=== PATIENT | female | born 1960 | race Caucasian/White ===

== ENCOUNTER 2019-07-19 15:22 | Inpatient (IN) ==
[2019-07-19] MEDS ORDERED: ONDANSETRON HCL/PF 2 MG/ML VIAL IV ONE (15:49)
[2019-07-19] MEDS ORDERED: NORMAL SALINE 1,000 ML IV ONE ×4 (15:49→17:38)
[2019-07-19] MEDS ORDERED: KETOROLAC TROMETHAMINE 30 MG/ML VIAL IV ONE (15:49)
[2019-07-19 15:51] LABS: Urine Bilirubin 1 mg/dl (NEGATIVE); Urine Blood 25 /ul (NEGATIVE); Urine Ketone Large mg/dL (NEGATIVE); Urine Nitrite Negative (NEGATIVE); Urine Protein 30 mg/dL (NEGATIVE); Urine Specific Gravity >=1.030 SP.GR. (1.005-1.010); Urine Urobilinogen Normal (NORMAL); Urine pH 5.5 pH (5.0-7.0)
[2019-07-19 15:52] LABS: Urine Appearance Clear (CLEAR); Urine Bacteria None Seen; Urine Color Yellow; Urine Hyaline Cast 0-5 /LPF; Urine RBC 0-5 /hpf (0-5); Urine WBC None Seen /hpf (0-5)
[2019-07-19 16:07] LABS: Hematocrit 48.1 % (37.0-47.0); Hemoglobin 15.9 gm/dL (12.5-16.0); Mean Cell Volume 91.1 fl (78-100); Mean Corpuscular Hemoglobin 30.1 pg (27-31); Mean Corpuscular Hgb Conc 33.1 g/dl (32-36); Mean Platelet Volume 10.7 fl (8-12.5); Neutrophil # 8.7 K/mm3 (1.3-6.0); Platelet Count 308 K/mm3 (150-450); Red Blood Count 5.28 M/mm3 (4.2-5.4); Red Cell Distribution Width 13.2 % (11.5-14.0); White Blood Count 11.3 K/mm3 (4.0-10.5)
[2019-07-19 16:17] LABS: Albumin * 4.6 gm/dl (3.4-5.0); Anion Gap 27.5 mmol/L (6.8-13.8); BUN/Creatinine Ratio 13.6 (9.0-21.6); Bilirubin, Total 0.5 mg/dL (0.0-1.1); Ca. Corrected For Albumin 8.7 mg/dL (8.4-10.2); Calcium * 9.5 mg/dL (7.9-10.9); Carbon Dioxide 14.8 mmol/L (24-32.6); Potassium 5.3 mmol/L (3.4-4.6); Total Protein 8.7 gm/dL (6.2-8.2)
[2019-07-19] MEDS ORDERED: INSULIN REGULAR, HUMAN 100 UNITS/ML VIAL IV ONE (16:44)
[2019-07-19] MEDS ORDERED: INSULIN REGULAR, HUMAN 100 UNITS in NORMAL SALINE 100 ML IV PRN ×2 (16:44)
--- NOTE | 2019-07-19 17:10 | ERNOTE ---
Medical Problem HPI - Narrative Date of Service: 07/19/19 - General Chief Complaint: Nausea/Vomiting Time Seen by Provider: 07/19/19 15:34 Source: patient, RN notes reviewed, old records Exam Limitations: no limitations - Immun/Allergies/Home Medications Immunizations: IMMUNIZATION HX Immunizations Up to Date Yes History of Influenza Vaccine No Hx Pneumococcal Vaccination No Allergies/Adverse Reactions: Allergies Penicillins Allergy (Mild, Verified 07/11/19 13:03) RASH shellfish derived Allergy (Mild, Verified 07/11/19 13:03) nausea/vomiting Home Medications: HOME MEDICATIONS NK 05/14/19 [Last Taken Unknown] - History of Present History Narrative: Toshia is a 59 year old female who presents to the ED for vomiting that began the evening of 07/16/19. She also reports severe pain in both of her legs. This started a few days before the vomiting. She denies having any diarrhea or abdominal pain. She also denies having any sick contacts. She recently saw her PCP for concerns for a DVT due to pain in her right ankle. She has not been taking anything for her symptoms. Date (Duration): 07/16/19 Timing: getting worse Review of Systems - Review of Systems Constitutional: Present: fatigue, malaise. Absent: recent illness, fever, chills EYE: Absent: eye pain, eye discharge ENT: Absent: ear pain, nose congestion, sore throat Respiratory: Absent: shortness of breath, cough Cardiology: Absent: chest pain, edema, claudication Gastrointestinal/Abdominal: Present: nausea, vomiting. Absent: diarrhea, abdominal pain Genitourinary: Absent: dysuria, hematuria Musculoskeletal: Present: muscle pain. Absent: back pain, joint pain, joint swelling Skin: Absent: rash, lesions Neurological: Absent: headache, dizziness/light-headedness Endocrine: Present: increased thirst, increased urine Hematologic/Lymphatic: Absent: easy bruising, easy bleeding Psych: Present: no symptoms reported Medical History (Last Reviewed 07/19/19 @ 17:24 by Keara Hicks NP) Hyperlipidemia (Chronic) Onset Date: Unknown Surgical History: Surgical History (Last Reviewed 07/19/19 @ 17:24 by Keara Hicks NP) History of cholecystectomy Onset Date: ~2012 History of tonsillectomy Onset Date: Unknown Family History: Family History (Last Reviewed 07/19/19 @ 17:24 by Keara Hicks NP) Mother Cancer Father Myocardial infarction Social History: (Last Reviewed 07/19/19 @ 17:24 by Keara Hicks NP) Social History: adopted: No foster care: No usp: No Marital status: lives independently: No household members: spouse number of children: 1 current occupational status: employed current occupation: retail financial analyst Highest education level completed: some college, no degree Service: No Tobacco: Smoking Status: Never smoker Alcohol: alcohol intake: current alcohol intake frequency: a few times a month Substance Use: substance use type: does not use Dietary Habits: caffeine: Yes Type: coffee Physical Exam - Physical Exam General Appearance: Present: wd/wn, alert, other - In no acute distress but a ppears to not feel well Head Exam: Present: normal inspection Eye Exam: Normal inspection: bilateral Ears, Nose, Throat: Present: normal except -, dry mucous membranes Neck: Present: normal inspection, nontender, supple, full range of motion Respiratory: Present: no respiratory distress, normal breath sounds, no accessory muscle use, lungs clear Cardiovascular/Chest: Present: no murmur, normal peripheral pulses, tachycardia Peripheral Pulses: N=norm/S=strong/W=weak/B=bound/A=absent: Dorsalis-pedis (R): Normal, Dorsalis-pedis (L): Normal Gastrointestinal/Abdominal: Present: normal bowel sounds, nontender, nondistended, soft Extremity Exam: Present: normal inspection, non-tender, normal range of motion, no edema Neurological Exam: Present: alert, oriented, normal mood/affect, no motor/sensory deficits Skin Exam: Present: normal color, warm/dry Progress - Results and Orders Patient's Lab Results:: I have reviewed the patient's lab results. - Vital Signs Patient's Vital Signs:: I have reviewed the patient's vital signs. Vital Signs: Vital Signs 07/19/19 15:27 07/19/19 16:34 Temperature 36.2 C Pulse Rate 105 H 97 Respiratory Rate 16 14 Blood Pressure 145/81 145/84 O2 Sat by Pulse Oximetry 100 99 - EKG EKG #1 EKG: other - Sinus tach, rate 103 EKG read: Reviewed by me - Progress/Reassessment Chief Complaint: Nausea/Vomiting Progress:: Improved Plan - Plan Plan: The patient is in diabetic ketoacidosis despite having no prior history of hyperglycemia. Her initial blood glucose was 425 with positive serum ketones and a venous pH of 7.067. Her renal function is impaired and she has a potassium of 5.3. She initially received IV Toradol and Zofran and 2 liters f IV NS. She has not had any vomiting in the ED. An insulin bolus and drip have been initiated. Dr. Marie was contacted and will admit the patient. Departure Clinical Impression: Diabetic ketoacidosis Qualifiers: Diabetes mellitus type: type 1 Diabetes mellitus complication detail: without coma Qualified Code(s): E10.10 - Type 1 diabetes mellitus with ketoacidosis without coma - Departure Disposition: Still a patient Condition: Serious Referrals: Char Marie DO [Primary Care Provider] -
[2019-07-19 18:17] LABS: Hemoglobin A1C 9.1 % (4.00-6.0)
[2019-07-19 18:30] LABS: Anion Gap 22.9 mmol/L (6.8-13.8); BUN/Creatinine Ratio 16.1 (9.0-21.6); Calcium * 7.4 mg/dL (7.9-10.9); Carbon Dioxide 14.3 mmol/L (24-32.6); Estimated Creat Clear 54.9; Potassium 4.2 mmol/L (3.4-4.6)
[2019-07-19] MEDS: NORMAL SALINE 1,000 ML IV PRN (19:46)
--- NOTE | 2019-07-19 19:55 | HP ---
Chief Complaint - Chief Complaint Date of Service: 07/19/19 Time of Service: 19:32 Chief Complaint: vomiting, leg pain History of Present Illness: Patient with a past medical history of hyperlipidemia. She reports having leg pain for approximately a week, and started vomiting 3 days ago. Her brought her to the ED today, and she was found to be in DKA. She does not have a history of diabetes. In the ED, she had serum ketones, venous pH of 7.067, CO2 of 14.8, AG of 27.5. Initial blood glucose was 425. At the time of my exam, she has received 4 1 L boluses of NS, a 7 U insulin bolus, and has been on an insulin drip for approximately 3 hours. She reports feeling much better. She is no longer vomiting, and her leg pain has subsided. She denies other complaints. Medical History (Last Reviewed 07/19/19 @ 19:05 by Rupa Casiano RN) Hyperlipidemia (Chronic) Onset Date: Unknown Surgical History: Surgical History (Last Updated 07/19/19 @ 19:06 by Rupa Casiano RN) S/P foot surgery, left Onset Date: ~05/23/19 History of cholecystectomy Onset Date: ~2012 History of tonsillectomy Onset Date: Unknown Family History: Family History (Last Reviewed 07/19/19 @ 19:06 by Rupa Casiano RN) Mother Cancer Father Myocardial infarction Social History: (Last Reviewed 07/19/19 @ 19:07 by Rupa Casiano RN) Social History: adopted: No foster care: No residential: No Marital status: lives independently: No household members: spouse number of children: 1 current occupational status: employed current occupation: [employer] business analyst Highest education level completed: some college, no degree Service: No Tobacco: Smoking Status: Never smoker Alcohol: alcohol intake: current alcohol intake frequency: a few times a month Substance Use: substance use type: does not use Dietary Habits: caffeine: Yes Type: coffee Review Of Systems (GEN) - Review of Systems Generalized/Overall Review: Present: Weakness. Absent: Fever Respiratory: Absent: Cough, Shortness of Breath Cardiac: Absent: Chest Pain, Edema Abdominal: Present: Nausea, Vomiting. Absent: Diarrhea Genitourinary: Present: No Symptoms Reported Musculoskeletal: Present: Joint Pain - right ankle Neurological: Present: No Symptoms Reported Skin: Present: No Symptoms Reported Immunizations: IMMUNIZATION HX Immunizations Up to Date Yes History of Influenza Vaccine No Hx Pneumococcal Vaccination No Allergies/Adverse Reactions: Allergies Allergy/AdvReac Type Severity Reaction Status Date / Time Penicillins Allergy Mild RASH Verified 07/19/19 19:08 shellfish derived Allergy Mild welts Verified 07/19/19 19:08 Home Medications: HOME MEDICATIONS NK 05/14/19 [Last Taken Unknown] Exam - Exam Vital Signs: Vital Signs - Last Taken Temp 36.4 C 07/19/19 18:47 Pulse 88 07/19/19 18:47 Resp 18 07/19/19 18:47 BP 147/76 07/19/19 18:47 Pulse Ox 98 07/19/19 18:47 Constitutional: Present: Alert, Oriented x3, Cooperative, Well developed, Well nourished, No distress Respiratory: Present: normal breath sounds, no respiratory distress Cardiovascular/Chest: Present: regular rate, rhythm Abdomen: Present: Normal bowel sounds, soft, nontender Extremity: Absent: lower extremity edema Appearance: Present: appropriate appearance Eye contact: Present: cooperative, good eye contact Diagnostic Studies: Abnormal Lab Results 07/19/19 07/19/19 07/19/19 Range/Units 15:42 16:00 16:00 WBC 11.3 H (4.0-10.5) K/mm3 Hct 48.1 H (37.0-47.0) % Immature Gran # (Auto) 0.04 H (0.000-0.0310) K/mm3 Neutrophils % 77.0 H (42-75.0) % Lymphocytes % 16.8 L (20-51) % Neutrophils # 8.7 H (1.3-6.0) K/mm3 VBG pH (7.32-7.43) Potassium 5.3 H D (3.4-4.6) mmol/L Chloride 95 L (97-106) mmol/L Carbon Dioxide 14.8 L (24-32.6) mmol/L Anion Gap 27.5 H (6.8-13.8) mmol/L Est GFR (Non-Af Amer) 46 L D (60-130) mL/min Random Glucose 425 H (70-110) mg/dL Hemoglobin A1c (4.00-6.0) % Calcium (7.9-10.9) mg/dL Total Protein 8.7 H (6.2-8.2) gm/dL Urine Protein 30 H (NEGATIVE) mg/dL Urine Glucose (UA) 500 H (NEGATIVE) mg/dL Urine Blood 25 H (NEGATIVE) /ul Urine Bilirubin 1 H (NEGATIVE) mg/dl Ur Epithelial Cells 5-10 H (0-5) /hpf Hyaline Casts 0-5 H (NONE) /LPF Serum Ketones (NEGATIVE) 07/19/19 07/19/19 07/19/19 Range/Units 16:00 16:00 16:55 WBC (4.0-10.5) K/mm3 Hct (37.0-47.0) % Immature Gran # (Auto) (0.000-0.0310) K/mm3 Neutrophils % (42-75.0) % Lymphocytes % (20-51) % Neutrophils # (1.3-6.0) K/mm3 VBG pH 7.067 L* (7.32-7.43) Potassium (3.4-4.6) mmol/L Chloride (97-106) mmol/L Carbon Dioxide (24-32.6) mmol/L Anion Gap (6.8-13.8) mmol/L Est GFR (Non-Af Amer) (60-130) mL/min Random Glucose (70-110) mg/dL Hemoglobin A1c 9.1 H (4.00-6.0) % Calcium (7.9-10.9) mg/dL Total Protein (6.2-8.2) gm/dL Urine Protein (NEGATIVE) mg/dL Urine Glucose (UA) (NEGATIVE) mg/dL Urine Blood (NEGATIVE) /ul Urine Bilirubin (NEGATIVE) mg/dl Ur Epithelial Cells (0-5) /hpf Hyaline Casts (NONE) /LPF Serum Ketones Positive - 20mg/dl H (NEGATIVE) 07/19/19 Range/Units 18:05 WBC (4.0-10.5) K/mm3 Hct (37.0-47.0) % Immature Gran # (Auto) (0.000-0.0310) K/mm3 Neutrophils % (42-75.0) % Lymphocytes % (20-51) % Neutrophils # (1.3-6.0) K/mm3 VBG pH (7.32-7.43) Potassium (3.4-4.6) mmol/L Chloride (97-106) mmol/L Carbon Dioxide 14.3 L (24-32.6) mmol/L Anion Gap 22.9 H (6.8-13.8) mmol/L Est GFR (Non-Af Amer) (60-130) mL/min Random Glucose 254 H D (70-110) mg/dL Hemoglobin A1c (4.00-6.0) % Calcium 7.4 L (7.9-10.9) mg/dL Total Protein (6.2-8.2) gm/dL Urine Protein (NEGATIVE) mg/dL Urine Glucose (UA) (NEGATIVE) mg/dL Urine Blood (NEGATIVE) /ul Urine Bilirubin (NEGATIVE) mg/dl Ur Epithelial Cells (0-5) /hpf Hyaline Casts (NONE) /LPF Serum Ketones (NEGATIVE) Laboratory Results WBC 11.3 K/mm3 (4.0-10.5) H 07/19/19 16:00 RBC 5.28 M/mm3 (4.2-5.4) 07/19/19 16:00 Hgb 15.9 gm/dL (12.5-16.0) 07/19/19 16:00 Hct 48.1 % (37.0-47.0) H 07/19/19 16:00 MCV 91.1 fl (78-100) 07/19/19 16:00 MCH 30.1 pg (27-31) 07/19/19 16:00 MCHC 33.1 g/dl (32-36) 07/19/19 16:00 RDW 13.2 % (11.5-14.0) 07/19/19 16:00 Plt Count 308 K/mm3 (150-450) 07/19/19 16:00 MPV 10.7 fl (8-12.5) 07/19/19 16:00 Immature Gran % (Auto) 0.40 % (0.001-0.429) 07/19/19 16:00 Immature Gran # (Auto) 0.04 K/mm3 (0.000-0.0310) H 07/19/19 16:00 Neutrophils % 77.0 % (42-75.0) H 07/19/19 16:00 Lymphocytes % 16.8 % (20-51) L 07/19/19 16:00 Monocytes % 5.2 % (0.0-9) 07/19/19 16:00 Eosinophils % 0.0 % (0.0-3.0) 07/19/19 16:00 Basophils % 0.6 % (0.0-1.0) 07/19/19 16:00 Nucleated RBC % 0.0 k/mm3 (0-1) 07/19/19 16:00 Neutrophils # 8.7 K/mm3 (1.3-6.0) H 07/19/19 16:00 Lymphocytes # 1.90 k/mm3 (1.5-3.5) 07/19/19 16:00 Monocytes # 0.6 k/mm3 (0.0-1.0) 07/19/19 16:00 Eosinophils # 0.0 k/mm3 (0.0-0.7) 07/19/19 16:00 Absolute Basophils 0.1 k/mm3 (0.0-0.1) 07/19/19 16:00 D-Dimer 0.28 ug/mL (0.19-0.49) 07/19/19 16:00 VBG pH 7.067 (7.32-7.43) L* 07/19/19 16:55 Sodium 139 mmol/L (132-142) 07/19/19 18:05 Plasma Sodium 141 mmol/L (130-142) 07/19/19 18:05 Potassium 4.2 mmol/L (3.4-4.6) D 07/19/19 18:05 Chloride 106 mmol/L (97-106) 07/19/19 18:05 Carbon Dioxide 14.3 mmol/L (24-32.6) L 07/19/19 18:05 Anion Gap 22.9 mmol/L (6.8-13.8) H 07/19/19 18:05 BUN 15 mg/dL (3-23) 07/19/19 18:05 Creatinine 0.93 mg/dL (0.4-1.4) 07/19/19 18:05 Est GFR (Non-Af Amer) 65 mL/min (60-130) D 07/19/19 18:05 BUN/Creatinine Ratio 16.1 (9.0-21.6) 07/19/19 18:05 Random Glucose 254 mg/dL (70-110) H D 07/19/19 18:05 Mean Blood Glucose 217 mg/dL 07/19/19 16:00 Hemoglobin A1c 9.1 % (4.00-6.0) H 07/19/19 16:00 Calcium 7.4 mg/dL (7.9-10.9) L 07/19/19 18:05 Calcium Adj for Albumin 8.7 mg/dL (8.4-10.2) 07/19/19 16:00 Total Bilirubin 0.5 mg/dL (0.0-1.1) 07/19/19 16:00 AST 13 U/L (0-48) 07/19/19 16:00 ALT 27 U/L (19-67) 07/19/19 16:00 Alkaline Phosphatase 166 U/L (50-170) 07/19/19 16:00 Total Protein 8.7 gm/dL (6.2-8.2) H 07/19/19 16:00 Albumin 4.6 gm/dl (3.4-5.0) 07/19/19 16:00 Lipase 113 U/L (73-393) 07/19/19 16:00 Urine Color Yellow 07/19/19 15:42 Urine Appearance Clear (CLEAR) 07/19/19 15:42 Urine pH 5.5 pH (5.0-7.0) 07/19/19 15:42 Ur Specific [place] >=1.030 SP.GR. (1.005-1.010) 07/19/19 15:42 Urine Protein 30 mg/dL (NEGATIVE) H 07/19/19 15:42 Urine Glucose (UA) 500 mg/dL (NEGATIVE) H 07/19/19 15:42 Urine Ketones Large mg/dL (NEGATIVE) 07/19/19 15:42 Urine Blood 25 /ul (NEGATIVE) H 07/19/19 15:42 Urine Nitrate Negative (NEGATIVE) 07/19/19 15:42 Urine Bilirubin 1 mg/dl (NEGATIVE) H 07/19/19 15:42 Urine Ictotest Negative (NEGATIVE) 07/19/19 15:42 Prot Sulfosalicylic Acd 1+ mg/dL (0) 07/19/19 15:42 Urine Urobilinogen Normal EU/dl (NORMAL) 07/19/19 15:42 Ur Leukocyte Esterase Negative /ul (NEGATIVE) 07/19/19 15:42 Urine RBC 0-5 /hpf (0-5) 07/19/19 15:42 Urine WBC None seen /hpf (0-5) 07/19/19 15:42 Ur Epithelial Cells 5-10 /hpf (0-5) H 07/19/19 15:42 Urine Bacteria None seen (NONE) 07/19/19 15:42 Hyaline Casts 0-5 /LPF (NONE) H 07/19/19 15:42 Urine Culture Comments No culture indicated 07/19/19 15:42 Serum Ketones Positive - 20mg/dl (NEGATIVE) H 07/19/19 16:00 Group A Strep Rapid Negative (NEGATIVE) 07/19/19 15:50 Assessment/Plan - Assessment/Plan (1) Diabetic ketoacidosis Assessment: A1C today was 9.1, indicating new onset diabetes. She is correcting with fluids and insulin. Drip is currently going at 4 U/hr. Most recent glucose was 265. CO2 is 14.3 at last check, Anion gap improved to 22.9. She received 4 boluses of 1 L NS, and NS is going currently at 250 cc/hr. Will continue this for now, and reduce as she corrects. Will continue q2h BMPs until she is significantly improving, then will change to q4h until she corrects and stays corrected. Since she does not already have a diagnosis of DM, will administer only a small dose of SC insulin when it is time to DC the insulin. NPO for now, but will likely be able to have breakfast in the morning. Will continue 250 cc NS until she is close to correcting her CO2 levels and anion gap. Problem: Acute Qualifiers: Diabetes mellitus type: type 2 Diabetes mellitus complication detail: without coma Qualified Code(s): E11.10 - Type 2 diabetes mellitus with ketoacidosis without coma (2) Hyperlipidemia Problem: Chronic
[2019-07-19 20:12] LABS: Anion Gap 19.9 mmol/L (6.8-13.8); BUN/Creatinine Ratio 15.7 (9.0-21.6); Calcium * 7.2 mg/dL (7.9-10.9); Carbon Dioxide 15.1 mmol/L (24-32.6); Estimated Creat Clear 61.5
[2019-07-19] MEDS ORDERED: DEXTROSE 5%-NORMAL SALINE 1,000 ML IV PRN (21:06)
[2019-07-19 22:24] LABS: Anion Gap 17.8 mmol/L (6.8-13.8); BUN/Creatinine Ratio 16.7 (9.0-21.6); Calcium * 7.3 mg/dL (7.9-10.9); Carbon Dioxide 18.3 mmol/L (24-32.6); Estimated Creat Clear 70.9; Potassium 4.1 mmol/L (3.4-4.6)
[2019-07-20 00:48] LABS: Anion Gap 16.2 mmol/L (6.8-13.8); BUN/Creatinine Ratio 15.7 (9.0-21.6); Calcium * 7.2 mg/dL (7.9-10.9); Carbon Dioxide 18.5 mmol/L (24-32.6); Estimated Creat Clear 72.9; Potassium 3.7 mmol/L (3.4-4.6)
[2019-07-20 02:25] LABS: Anion Gap 14.6 mmol/L (6.8-13.8); BUN/Creatinine Ratio 16.4 (9.0-21.6); Calcium * 7.2 mg/dL (7.9-10.9); Carbon Dioxide 19.1 mmol/L (24-32.6); Estimated Creat Clear 76.1; Potassium 3.7 mmol/L (3.4-4.6)
[2019-07-20] MEDS: NORMAL SALINE 1,000 ML IV PRN ×3 (04:06→20:22)
[2019-07-20 04:28] LABS: Anion Gap 13.2 mmol/L (6.8-13.8); BUN/Creatinine Ratio 14.3 (9.0-21.6); Calcium * 7.3 mg/dL (7.9-10.9); Carbon Dioxide 20.5 mmol/L (24-32.6); Estimated Creat Clear 72.9; Potassium 3.7 mmol/L (3.4-4.6)
--- NOTE | 2019-07-20 07:34 | PN ---
Subjective - Date and Time Seen Date: 07/20/19 Time: 07:31 Subjective Narrative: Patient feels ok this morning. Just started eating breakfast at the time of my exam. She was able to get more sleep last night than she had been at home. Objective - Review of Systems Generalized/Overall Review: Denies: Fever Respiratory: Denies: Cough, Shortness of Breath Cardiac: Denies: Chest Pain, Edema Abdominal: Denies: Nausea, Vomiting Genitourinary Symptoms: Reports: No Symptoms Reported Musculoskeletal Complaints: Reports: Joint Pain - ankle Skin: Reports: No Symptoms Reported - Vitals Vitals: Last Vital Signs Temp 36.4 C 07/19/19 18:47 Pulse 77 07/20/19 05:00 Resp 16 07/20/19 05:00 BP 125/54 07/20/19 05:00 Pulse Ox 98 07/20/19 05:00 - Abnormal Lab Findings Abnormal Lab Findings: Abnormal Lab Results 07/19/19 07/19/19 07/19/19 Range/Units 15:42 16:00 16:00 WBC 11.3 H (4.0-10.5) K/mm3 Hct 48.1 H (37.0-47.0) % Immature Gran # (Auto) 0.04 H (0.000-0.0310) K/mm3 Neutrophils % 77.0 H (42-75.0) % Lymphocytes % 16.8 L (20-51) % Neutrophils # 8.7 H (1.3-6.0) K/mm3 VBG pH (7.32-7.43) Potassium 5.3 H D (3.4-4.6) mmol/L Chloride 95 L (97-106) mmol/L Carbon Dioxide 14.8 L (24-32.6) mmol/L Anion Gap 27.5 H (6.8-13.8) mmol/L Est GFR (Non-Af Amer) 46 L D (60-130) mL/min Random Glucose 425 H (70-110) mg/dL Hemoglobin A1c (4.00-6.0) % Calcium (7.9-10.9) mg/dL Total Protein 8.7 H (6.2-8.2) gm/dL Urine Protein 30 H (NEGATIVE) mg/dL Urine Glucose (UA) 500 H (NEGATIVE) mg/dL Urine Blood 25 H (NEGATIVE) /ul Urine Bilirubin 1 H (NEGATIVE) mg/dl Ur Epithelial Cells 5-10 H (0-5) /hpf Hyaline Casts 0-5 H (NONE) /LPF Serum Ketones (NEGATIVE) 07/19/19 07/19/19 07/19/19 Range/Units 16:00 16:00 16:55 WBC (4.0-10.5) K/mm3 Hct (37.0-47.0) % Immature Gran # (Auto) (0.000-0.0310) K/mm3 Neutrophils % (42-75.0) % Lymphocytes % (20-51) % Neutrophils # (1.3-6.0) K/mm3 VBG pH 7.067 L* (7.32-7.43) Potassium (3.4-4.6) mmol/L Chloride (97-106) mmol/L Carbon Dioxide (24-32.6) mmol/L Anion Gap (6.8-13.8) mmol/L Est GFR (Non-Af Amer) (60-130) mL/min Random Glucose (70-110) mg/dL Hemoglobin A1c 9.1 H (4.00-6.0) % Calcium (7.9-10.9) mg/dL Total Protein (6.2-8.2) gm/dL Urine Protein (NEGATIVE) mg/dL Urine Glucose (UA) (NEGATIVE) mg/dL Urine Blood (NEGATIVE) /ul Urine Bilirubin (NEGATIVE) mg/dl Ur Epithelial Cells (0-5) /hpf Hyaline Casts (NONE) /LPF Serum Ketones Positive - 20mg/dl H (NEGATIVE) 07/19/19 07/19/19 07/19/19 Range/Units 18:05 20:00 22:10 WBC (4.0-10.5) K/mm3 Hct (37.0-47.0) % Immature Gran # (Auto) (0.000-0.0310) K/mm3 Neutrophils % (42-75.0) % Lymphocytes % (20-51) % Neutrophils # (1.3-6.0) K/mm3 VBG pH (7.32-7.43) Potassium (3.4-4.6) mmol/L Chloride 109 H 109 H (97-106) mmol/L Carbon Dioxide 14.3 L 15.1 L 18.3 L (24-32.6) mmol/L Anion Gap 22.9 H 19.9 H 17.8 H (6.8-13.8) mmol/L Est GFR (Non-Af Amer) (60-130) mL/min Random Glucose 254 H D 158 H D 124 H (70-110) mg/dL Hemoglobin A1c (4.00-6.0) % Calcium 7.4 L 7.2 L 7.3 L (7.9-10.9) mg/dL Total Protein (6.2-8.2) gm/dL Urine Protein (NEGATIVE) mg/dL Urine Glucose (UA) (NEGATIVE) mg/dL Urine Blood (NEGATIVE) /ul Urine Bilirubin (NEGATIVE) mg/dl Ur Epithelial Cells (0-5) /hpf Hyaline Casts (NONE) /LPF Serum Ketones (NEGATIVE) 07/20/19 07/20/19 07/20/19 Range/Units 00:00 02:00 04:00 WBC (4.0-10.5) K/mm3 Hct (37.0-47.0) % Immature Gran # (Auto) (0.000-0.0310) K/mm3 Neutrophils % (42-75.0) % Lymphocytes % (20-51) % Neutrophils # (1.3-6.0) K/mm3 VBG pH (7.32-7.43) Potassium (3.4-4.6) mmol/L Chloride 110 H 111 H 111 H (97-106) mmol/L Carbon Dioxide 18.5 L 19.1 L 20.5 L (24-32.6) mmol/L Anion Gap 16.2 H 14.6 H (6.8-13.8) mmol/L Est GFR (Non-Af Amer) (60-130) mL/min Random Glucose 114 H (70-110) mg/dL Hemoglobin A1c (4.00-6.0) % Calcium 7.2 L 7.2 L 7.3 L (7.9-10.9) mg/dL Total Protein (6.2-8.2) gm/dL Urine Protein (NEGATIVE) mg/dL Urine Glucose (UA) (NEGATIVE) mg/dL Urine Blood (NEGATIVE) /ul Urine Bilirubin (NEGATIVE) mg/dl Ur Epithelial Cells (0-5) /hpf Hyaline Casts (NONE) /LPF Serum Ketones (NEGATIVE) - Exam Constitutional: Present: Alert, Oriented x3, Cooperative, Well developed, No distress Respiratory: Present: normal breath sounds, no respiratory distress Cardiovascular/Chest: Present: regular rate, rhythm Abdomen: Present: Normal bowel sounds, soft, nontender Extremity: Absent: lower extremity edema Neurologic: Present: normal mood/affect Eye contact: Present: cooperative, good eye contact Assessment/Plan - Problems/Diagnosis (1) Diabetic ketoacidosis Problem: Acute Qualifiers: Diabetes mellitus type: type 2 Diabetes mellitus complication detail: without coma Qualified Code(s): E11.10 - Type 2 diabetes mellitus with ketoacidosis without coma Narrative: Improving. Her last BMP showed her CO2 is almost normalized at 20.5, and anion gap is closed at 13.2. Insulin drip currently at 1 unit/h. Fluids are at 100 cc of normal saline per hour and 50 cc of D5 normal saline per hour. Since she does not have a diagnosis of diabetes previously, she does not have a home insulin dose to transition. When her CO2 normalizes, will give 5 units SC Lantus and transfer to the [facility] floor. She has started eating this morning. I believe this DKA is brought on by new onset diabetes. She had been vomiting and having leg pain, both of which resolved with fluids and insulin. Vitals still normal. (2) Hyperlipidemia Problem: Chronic
[2019-07-20 08:24] LABS: Anion Gap 11.6 mmol/L (6.8-13.8); BUN/Creatinine Ratio 13.1 (9.0-21.6); Calcium * 7.1 mg/dL (7.9-10.9); Carbon Dioxide 21.4 mmol/L (24-32.6); Estimated Creat Clear 83.6
[2019-07-20] MEDS ORDERED: INSULIN GLARGINE,HUM.REC.ANLOG 100 UNITS/ML VIAL SC SCH ×2 (09:45→21:00)
[2019-07-20 12:09] LABS: Anion Gap 12.9 mmol/L (6.8-13.8); BUN/Creatinine Ratio 11.9 (9.0-21.6); Calcium * 7.2 mg/dL (7.9-10.9); Estimated Creat Clear 76.1; Potassium 3.9 mmol/L (3.4-4.6)
[2019-07-20] MEDS: INSULIN LISPRO 100 UNITS/ML VIAL SC SCH ×3 (12:56→21:21)
[2019-07-20] MEDS ORDERED: FLU VACC QS2019-20(6MOS UP)/PF 60 MCG/0.5 ML SYRINGE IM ONE (13:00)
[2019-07-20 16:25] LABS: Anion Gap 11.4 mmol/L (6.8-13.8); BUN/Creatinine Ratio 15.3 (9.0-21.6); Calcium * 7.5 mg/dL (7.9-10.9); Carbon Dioxide 22.4 mmol/L (24-32.6); Estimated Creat Clear 70.9; Potassium 3.8 mmol/L (3.4-4.6)
[2019-07-20] MEDS ORDERED: INSULIN LISPRO 100 UNITS/ML VIAL SC SCH (17:00)
[2019-07-20] MEDS ORDERED: INSULIN LISPRO 100 UNITS/ML VIAL SC ONE (17:00)
[2019-07-20 21:35] LABS: Anion Gap 8.4 mmol/L (6.8-13.8); BUN/Creatinine Ratio 14.9 (9.0-21.6); Calcium * 7.8 mg/dL (7.9-10.9); Estimated Creat Clear 76.1; Potassium 3.4 mmol/L (3.4-4.6)
[2019-07-21 00:20] LABS: Anion Gap 9.7 mmol/L (6.8-13.8); BUN/Creatinine Ratio 12.3 (9.0-21.6); Calcium * 7.6 mg/dL (7.9-10.9); Carbon Dioxide 25.6 mmol/L (24-32.6); Estimated Creat Clear 78.5; Potassium 3.3 mmol/L (3.4-4.6)
[2019-07-21 06:06] LABS: Albumin * 2.5 gm/dl (3.4-5.0); Anion Gap 10.4 mmol/L (6.8-13.8); BUN/Creatinine Ratio 9.1 (9.0-21.6); Bilirubin, Total 0.3 mg/dL (0.0-1.1); Ca. Corrected For Albumin 8.3 mg/dL (8.4-10.2); Calcium * 7.4 mg/dL (7.9-10.9); Carbon Dioxide 27.1 mmol/L (24-32.6); Potassium 3.5 mmol/L (3.4-4.6); Total Protein 4.9 gm/dL (6.2-8.2)
[2019-07-21] MEDS: INSULIN LISPRO 100 UNITS/ML VIAL SC SCH ×2 (07:30→11:33)
[2019-07-21] MEDS ORDERED: INSULIN GLARGINE,HUM.REC.ANLOG 100 UNITS/ML VIAL SC SCH (09:00)
--- NOTE | 2019-07-21 13:37 | DS ---
(1) Diabetic ketoacidosis Problem: Acute Qualifiers: Diabetes mellitus type: type 2 Diabetes mellitus complication detail: without coma Qualified Code(s): E11.10 - Type 2 diabetes mellitus with ketoacidosis without coma (2) Hyperlipidemia Problem: Chronic (3) Insulin dependent diabetes mellitus Problem: Acute Date of Discharge:: 07/21/19 Hospital Course: Patient has a past medical history of hyperlipidemia. She went to the ED for leg pain and persistent vomiting. She reports having leg pain for approximately a week, and started vomiting 3 days prior to admission. Her brought her to the ED, and she was found to be in DKA. She does not have a history of diabetes. In the ED, she had serum ketones, venous pH of 7.067, CO2 of 14.8, AG of 27.5. A1C was 9.1. Her glucose had always been normal when checked, most recently May 2019, and was 85. Initial blood glucose was 425. Her vomiting and leg pain quickly subsided after the fluids and insulin were started. She corrected fairly quickly, and was on the insulin drip for less than 24 hours. Since she did not have a prior diagnosis of diabetes, there was no home insulin regimen to which to transition. She was given 10 U lantus, but still had glucose readings in the 300's. Lantus increased to 20 U daily, and glucose was in the 100's and 200's. She stayed out of DKA. She recently had foot surgery, and will be having a colposcopy for abnormal pap, but otherwise does not have other symptoms. It was felt her DKA was due to new onset diabe nimo. Will DC with 25 U lantus in the mornings, and order a glucometer with lancets and test strips to check her glucose twice daily until her next visit with me. Will then discuss starting metformin. Procedures Performed: none Results and Findings: Lab Pending Results 07/19/19 15:42: Urine Color Yellow, Urine Appearance Clear, Urine pH 5.5, Ur Specific [place] >=1.030, Urine Protein 30 H, Urine Glucose (UA) 500 H, Urine Ketones Large, Urine Blood 25 H, Urine Nitrate Negative, Urine Bilirubin 1 H, Urine Ictotest Negative, Prot Sulfosalicylic Acd 1+, Urine Urobilinogen Normal, Ur Leukocyte Esterase Negative, Urine RBC 0-5, Urine WBC None seen, Ur Epithelial Cells 5-10 H, Urine Bacteria None seen, Hyaline Casts 0-5 H, Urine Culture Comments No culture indicated 07/19/19 15:50: Group A Strep Rapid Negative 07/19/19 16:00: WBC 11.3 H, RBC 5.28, Hgb 15.9, Hct 48.1 H, MCV 91.1, MCH 30.1, MCHC 33.1, RDW 13.2, Plt Count 308, MPV 10.7, Immature Gran % (Auto) 0.40, Immature Gran # (Auto) 0.04 H, Neutrophils % 77.0 H, Lymphocytes % 16.8 L, Monocytes % 5.2, Eosinophils % 0.0, Basophils % 0.6, Nucleated RBC % 0.0, Neutrophils # 8.7 H, Lymphocytes # 1.90, Monocytes # 0.6, Eosinophils # 0.0, Absolute Basophils 0.1 07/19/19 16:00: Sodium 132, Plasma Sodium 137, Potassium 5.3 H D, Chloride 95 L, Carbon Dioxide 14.8 L, Anion Gap 27.5 H, BUN 17, Creatinine 1.25, Est GFR (Non- Af Amer) 46 L D, BUN/Creatinine Ratio 13.6, Random Glucose 425 H, Calcium 9.5, Calcium Adj for Albumin 8.7, Total Bilirubin 0.5, AST 13, ALT 27, Alkaline Phosphatase 166, Total Protein 8.7 H, Albumin 4.6, Lipase 113 07/19/19 16:00: D-Dimer 0.28 07/19/19 16:00: Serum Ketones Positive - 20mg/dl H 07/19/19 16:00: Mean Blood Glucose 217, Hemoglobin A1c 9.1 H 07/19/19 16:55: VBG pH 7.067 L* 07/19/19 18:05: Sodium 139, Plasma Sodium 141, Potassium 4.2 D, Chloride 106, Carbon Dioxide 14.3 L, Anion Gap 22.9 H, BUN 15, Creatinine 0.93, Est GFR (Non- Af Amer) 65 D, BUN/Creatinine Ratio 16.1, Random Glucose 254 H D, Calcium 7.4 L 07/19/19 20:00: Sodium 140, Plasma Sodium 141, Potassium 4.0, Chloride 109 H, Carbon Dioxide 15.1 L, Anion Gap 19.9 H, BUN 13, Creatinine 0.83, Est GFR (Non- Af Amer) 74, BUN/Creatinine Ratio 15.7, Random Glucose 158 H D, Calcium 7.2 L 07/19/19 22:10: Sodium 141, Plasma Sodium 141, Potassium 4.1, Chloride 109 H, Carbon Dioxide 18.3 L, Anion Gap 17.8 H, BUN 12, Creatinine 0.72, Est GFR (Non- Af Amer) 88, BUN/Creatinine Ratio 16.7, Random Glucose 124 H, Calcium 7.3 L 07/20/19 00:00: Sodium 141, Plasma Sodium 141, Potassium 3.7, Chloride 110 H, Carbon Dioxide 18.5 L, Anion Gap 16.2 H, BUN 11, Creatinine 0.70, Est GFR (Non- Af Amer) 90, BUN/Creatinine Ratio 15.7, Random Glucose 108, Calcium 7.2 L 07/20/19 02:00: Sodium 141, Plasma Sodium 141, Potassium 3.7, Chloride 111 H, Carbon Dioxide 19.1 L, Anion Gap 14.6 H, BUN 11, Creatinine 0.67, Est GFR (Non- Af Amer) 95, BUN/Creatinine Ratio 16.4, Random Glucose 101, Calcium 7.2 L 07/20/19 04:00: Sodium 141, Plasma Sodium 141, Potassium 3.7, Chloride 111 H, Carbon Dioxide 20.5 L, Anion Gap 13.2, BUN 10, Creatinine 0.70, Est GFR (Non-Af Amer) 90, BUN/Creatinine Ratio 14.3, Random Glucose 114 H, Calcium 7.3 L 07/20/19 08:10: Sodium 139, Plasma Sodium 140, Potassium 4.0, Chloride 110 H, Carbon Dioxide 21.4 L, Anion Gap 11.6, BUN 8, Creatinine 0.61, Est GFR (Non-Af Amer) 106, BUN/Creatinine Ratio 13.1, Random Glucose 165 H D, Calcium 7.1 L 07/20/19 11:57: Sodium 137, Plasma Sodium 141, Potassium 3.9, Chloride 106, Carbon Dioxide 22.0 L, Anion Gap 12.9, BUN 8, Creatinine 0.67, Est GFR (Non-Af Amer) 95, BUN/Creatinine Ratio 11.9, Random Glucose 348 H D, Calcium 7.2 L 07/20/19 16:13: Sodium 137, Plasma Sodium 141, Potassium 3.8, Chloride 107 H, Carbon Dioxide 22.4 L, Anion Gap 11.4, BUN 11, Creatinine 0.72, Est GFR (Non-Af Amer) 88, BUN/Creatinine Ratio 15.3, Random Glucose 360 H, Calcium 7.5 L 07/20/19 20:10: Sodium 140, Plasma Sodium 141, Potassium 3.4, Chloride 110 H, Carbon Dioxide 25.0, Anion Gap 8.4, BUN 10, Creatinine 0.67, Est GFR (Non-Af Amer) 95, BUN/Creatinine Ratio 14.9, Random Glucose 190 H D, Calcium 7.8 L 07/21/19 00:10: Sodium 142, Plasma Sodium 143 H, Potassium 3.3 L, Chloride 110 H, Carbon Dioxide 25.6, Anion Gap 9.7, BUN 8, Creatinine 0.65, Est GFR (Non-Af Amer) 98, BUN/Creatinine Ratio 12.3, Random Glucose 139 H, Calcium 7.6 L 07/21/19 05:40: Sodium 142, Plasma Sodium 143 H, Potassium 3.5, Chloride 108 H, Carbon Dioxide 27.1, Anion Gap 10.4, BUN 5, Creatinine 0.55, Est GFR (Non-Af Amer) 119 D, BUN/Creatinine Ratio 9.1, Random Glucose 158 H, Calcium 7.4 L, Calcium Adj for Albumin 8.3 L, Total Bilirubin 0.3, AST 14, ALT 17 L, Alkaline Phosphatase 90, Total Protein 4.9 L, Albumin 2.5 L Discharge Location: Home Disposition: Home self-care Condition: Good Discharge Activity: Activity as tolerated Discharge Diet: Consistent carbs Referrals: Char Marie DO [Primary Care Provider] - One Week (May need to schedule at 3:45 if no openings. ) Problem Oriented Discharge Instructions to Patient/Family: How and Where to Give Subcutaneous Injections Using a Syringe and Vial, How and Where to Give Subcutaneous Insulin Injections, Adult Prescriptions (Any new or edited meds): Insulin Glargine,[email or web address] [Lantus] 25 units [place] DAILY #1 vial Transmission Status: Pending to [id number] Complete Home Medications List: Complete Home Medication List: Insulin Glargine,Hum.[email or web address] [Lantus] 25 units [place] DAILY #1 vial 07/21/19
[2019-07-21 14:01] VITALS: BP 145/86
== END 2019-07-21 14:00 | disposition home or self-care (01) | DRG 639 ==
LOC: ER 15:22 → SCU 17:32 → MS 07-20 17:04
PROVIDERS: ADMIT Family Medicine; ATTEND Family Medicine
CPT/HCPCS: 36415; 80048; 80053; 81001; 82009; 82800; 83036; 83690; 85025; 85379; 87081; 87430; 90471; 90686; 93005; 96361; 96365; 96366; 96372; 96375; 99285; G0378; J2405